=== PATIENT | female | born 1990 | race Caucasian/White ===

== ENCOUNTER 2020-12-14 23:27 | Emergency (ER) | payer OTHER ==
[~2020-12-14 23:27] MED LIST: MOTRIN600 MG PO
[2020-12-15] MEDS ORDERED: TRAMADOL HCL50 MG PO (01:21)
[2020-12-15] MEDS ORDERED: AMOXICILLIN500 MG PO (01:21)
== END 2020-12-15 02:10 | disposition home or self-care (01) ==
LOC: FER 23:27
DX: K02.9 Dental caries, unspecified (principal); Z87.891 Personal history of nicotine dependence; Z88.5 Allergy status to narcotic agent
CPT/HCPCS: 99282; J1885

== ENCOUNTER → 2021-05-09 | Day surgery (SDC) | payer OTHER ==
[~2021-05-09] VITALS: Ht 162.6 cm; Wt 65.8 kg
[~2021-05-09] MED LIST changes: +AMOXICILLIN500 MG PO; +BUPRENORPHIN-N1 EACH PO; +LEVOTHYROXINE50 MCG PO; +TRAMADOL HCL50 MG PO
[2021-05-09 09:31] LABS: HCG (URINE) SCREEN NEGATIVE (NEGATIVE)
[2021-05-09 09:49] LABS: BASOPHIL 0.3 % (0-2); EOSINOPHIL 1.4 % (0-5); HCT 38.4 % (37.0-47.0); HGB 13.3 g/dl (12.5-16.0); LYMPHOCYTE 31.7 % (15-48); MCH 31.7 pg (25.0-31.0); MCHC 34.6 g/dL (32.0-36.0); MCV 91.4 fL (78.0-100.0); MPV 9.6 fL (6.0-9.5); NEUTROPHIL 53.3 % (41-80); NRBC 0; PLT 244 K/uL (150-400); RDW 12.6 % (11.5-14.0); WBC 7.1 K/uL (4.0-10.5)
== END | disposition home or self-care (01) ==
LOC: FAS 09:00
PROVIDERS: Oral & Maxillofacial Surgery
DX: K02.9 Dental caries, unspecified (principal); K04.7 Periapical abscess without sinus; E03.9 Hypothyroidism, unspecified; Z88.5 Allergy status to narcotic agent
CPT/HCPCS: 36415; 84703; 85025; J1100; J1170; J2250; J2405; J2704; J2710; J3010; J7120